=== PATIENT | female | born 1970 | race African-American/Black ===

== ENCOUNTER 2023-09-22 07:41 | Emergency (ER) | payer BC ==
[~2023-09-22] VITALS: Ht 160 cm; Wt 56.3 kg
[2023-09-22 08:13] VITALS: BP 115/70; PULSE 56; RESP 18; O2SAT 98
[2023-09-22] MEDS ORDERED: NAPR-746 PO (08:43)
[2023-09-22] MEDS ORDERED: ACETAMINOPHEN 500 MG TAB PO ONE (08:45)
[2023-09-22 08:49] VITALS: TEMP 98.6
== END 2023-09-22 08:52 | disposition home or self-care (01) ==
LOC: ER 07:41
DX: S83.8X2A Sprain of other specified parts of left knee, initial encounter (principal); Z88.8 Allergy status to other drugs, medicaments and biological substances; Z79.899 Other long term (current) drug therapy; X50.1XXA Overexertion from prolonged static or awkward postures, initial encounter; Y93.89 Activity, other specified; Y92.89 Other specified places as the place of occurrence of the external cause; Y99.8 Other external cause status
CPT/HCPCS: 73562